=== PATIENT | female | born 1985 | race Caucasian/White ===

== ENCOUNTER 2017-11-06 17:14 | Inpatient (IN) | payer BC ==
[2017-11-06 18:16] LABS: Hematocrit 33 % (35-47); Hemoglobin 11.1 g/dl (12.0-16.0); Mean Corpuscular HGB Conc 34 g/dl (31-36); Mean Corpuscular Hemoglobin 29 pg (27-31); Mean Corpuscular Volume 86 fL (80-97); Mean Platelet Volume 7.9 um3 (7.4-10.4); Platelet Count 213 10^3/ul (150-450); Red Blood Count 3.88 10^6/ul (4.00-5.40); Red Cell Distribution Width 14 % (10.5-15); White Blood Count 9.2 10^3/ul (3.5-10.8)
[2017-11-06] MEDS ORDERED: OBEPIDURAL* 250 ML EPIDURAL ONE (18:20)
--- NOTE | 2017-11-06 18:29 | HP ---
General Information - Reason for Visit contractions every 5 minutes, -LOF, +spotting -VB. +FM - General Information Maternal Age: 32 Grav: 3 Para: 1 SAB: 1 IEA: 0 Estimated Due Date: 11/10/17 Determined By: Early Ultrasound Maternal Blood Type and Rh: A Negative - Results this Serology/RPR Result: Non-Reactive Rubella Result: Immune HBsAg Result: Negative HIV Result: Negative GBS Culture Result: Negative Past Medical History Delivery History: Hx Uncomplicated Vaginal Delivery Pertinent Past Medical History: Non-Contributory Pertinent Past Surgical History: See Records - tubes in ears 1990 Pertinent Family History: See Records - blood clots, DM, high chol, alzheimers, CVD Review of Systems Constitutional: Uncomfortable CV Complaint: No Respiratory: Shortness of Breath: No Gastrointestinal: No Nausea/Vomiting, Normal Bowel Movement Genitourinary: No Dysuria, No Bleeding, No Leaking Fluid, Spotting Musculoskeletal: Contractions Neurological: No Headache, No Visual Changes Movement: Normal Exam Allergies/Adverse Reactions: Allergies Sulfa (Sulfonamide Antibiotics) Allergy (Verified 11/06/17 17:40) Hives T:98.1, BP: 126/73, O2: 100 Lab Values - Entire Visit: Laboratory Tests 11/06/17 18:00 WBC 9.2 RBC 3.88 L Hgb 11.1 L Hct 33 L MCV 86 MCH 29 MCHC 34 RDW 14 Plt Count 213 MPV 7.9 - Measurements Height: 5 ft 6 in Weight: 187 lb Weight in lbs: [id number] Body Mass Index (BMI): 30.2 Pre- Weight: 153 lb Weight Gained This : 34 lbs and 0 ozs - Exam Breast: Breast Exam Deferred CVA: No CVA Tenderness Extremities: No Edema Heart: Normal Rhythm/Heart Sounds HEENT: No Significant Findings Lungs: Clear Bilaterally Rectal: Rectal Exam Deferred Reflexes: DTR 2+ Thyroid: No Thyromegaly - Abdominal Exam Abdomen Exam: Fundal Height Consistent with Dates - Ultrasound/Biophysical Profile Ultrasound Status: Not Done Targeted Exam Findings Estimated Weight: 8lbs Cervical Exam: 7cm Effacement: Thin Station: -1 Presenting Part: Vertex Membrane Status: Bulging Bleeding/Discharge: Bloody Show EFM Findings - External Monitor Findings Baseline Heart Rate: 145 External Monitor Findings: Accelerations Present, No Pattern of Variable or Late Decelerations, Variability Moderate, Baseline Stable Contractions: Regular, Moderate, 45-90 Seconds Contraction Frequency: 2-3 min Assessment/Plan - Assessment 32 y.o at 39w 3d EGA. Active labor - Plan Plan: Admit - Anticipate Vaginal Delivery - Date/Time of Admission Date of Admission: 11/06/17 Time of Admission: 05:14
[2017-11-06] MEDS ORDERED: Sodium Citrate/Citric Acid* 15 ML UDC PO PRN (19:20)
[2017-11-06] MEDS ORDERED: Phenylephrine IV* 40 MCG/ML 10 ML SYRINGE IV PUSH PRN ×2 (19:20)
[2017-11-06] MEDS ORDERED: EPHEDrine (Pressors)* 50 MG/ML VIAL IV PUSH PRN ×2 (19:20)
[2017-11-06] MEDS ORDERED: Famotidine TAB* 20 MG PO PRN (19:20)
[2017-11-06] MEDS ORDERED: OBEPIDURAL* 250 ML EPIDURAL SCH (20:00)
[2017-11-06] MEDS ORDERED: Oxytocin in LR* 20 UNITS/1,000 ML BAG IVPB ONE (21:05)
[2017-11-06] MEDS ORDERED: Glycerin ADULT SUPP PR PRN (21:19)
[2017-11-06] MEDS ORDERED: Dibucaine 1% 28.35 GM TUBE PR PRN (21:19)
[2017-11-06] MEDS ORDERED: Witch Hazel PAD* JAR TOPICAL PRN (21:19)
--- NOTE | 2017-11-06 21:28 | PROCNOTE ---
[facility], [place] OB: Delivery Note - Delivery A Date of : 11/06/17 Time of : 21:03 Sex: Male Gestational Age in Weeks and Days at Delivery: 39 Weeks and 3 Days Delivery Method: Spontaneous Vaginal Labor: Spontaneous Amniotic Fluid: Clear Estimated Blood Loss: 100 Anesthesia/Analgesia: CEI for Labor - Nursery Level of Nursery: Regular/Bedside - Perineum Perineal Injury Comment: left labial, hemostatic, pt declines repair Perineal Repair: None - Events Delivery Events of Note: Pitocin Only After Delivery - Additional Delivery Notes Additional Delivery Notes: nuchal cord easily reduced
[2017-11-06] MEDS ORDERED: Oxytocin in LR* 20 UNITS/1,000 ML BAG IVPB SCH (22:00)
[2017-11-06] MEDS: Ibuprofen TAB* 600 MG PO PRN (22:47)
[2017-11-07] MEDS: Ibuprofen TAB* 600 MG PO PRN ×3 (04:46→18:07)
[2017-11-07 06:42] LABS: ABS Basophils 0 10^3/ul (0-0.2); ABS Eosinophils 0 10^3/ul (0-0.6); ABS Lymphocytes 1.5 10^3/ul (1.0-4.8); ABS Monocytes 0.9 10^3/ul (0-0.8); ABS Neutrophils 11.3 10^3/ul (1.5-7.7); ABS Nucleated RBC 0 10^3/ul; Eosinophil % 0.2 % (0-6); Hematocrit 29 % (35-47); Hemoglobin 9.8 g/dl (12.0-16.0); Mean Corpuscular HGB Conc 34 g/dl (31-36); Mean Corpuscular Hemoglobin 29 pg (27-31); Mean Corpuscular Volume 86 fL (80-97); Mean Platelet Volume 7.8 um3 (7.4-10.4); Nucleated Red Blood Cells % 0; Platelet Count 184 10^3/ul (150-450); Red Cell Distribution Width 14 % (10.5-15); White Blood Count 13.7 10^3/ul (3.5-10.8)
[2017-11-07] MEDS: Ferrous Gluconate TAB* 324 MG TAB PO SCH ×2 (07:50→20:57)
[2017-11-07] MEDS: Docusate CAP* 100 MG PO SCH ×3 (07:50→20:57)
[2017-11-07] MEDS: Acetaminophen TAB* 325 MG PO PRN ×3 (07:51→20:56)
[2017-11-07] MEDS ORDERED: Simethicone TAB* 80 MG TAB.CHEW PO SCH (08:30)
[2017-11-07] MEDS ORDERED: Varicella Virus Vaccine Live* 0.5 ML VIAL SUBCUT ONE (09:00)
[2017-11-07] MEDS ORDERED: RHO D Immune Globulin (HUMAN)* 300 MCG = 1,500 I.U. INJ IM ONE (11:32)
[2017-11-07 20:51] VITALS: BP 116/70
== END 2017-11-07 18:40 | disposition home or self-care (01) | DRG 560 ==
LOC: MCHOBOUT 17:14 → MCHOB 17:38
PROVIDERS: ADMIT Midwife; ATTEND Midwife
PROC: 10E0XZZ Delivery of Products of Conception, External Approach (ICD-10-PCS; principal; 2017-11-06)
PROC: 4A1HXCZ Monitoring of Products of Conception, Cardiac Rate, External Approach (ICD-10-PCS; 2017-11-06)
DX: O69.81X0 Labor and delivery complicated by cord around neck, without compression, not applicable or unspecified (principal); O70.0 First degree perineal laceration during delivery; Z88.2 Allergy status to sulfonamides; Z82.0 Family history of epilepsy and other diseases of the nervous system; Z82.49 Family history of ischemic heart disease and other diseases of the circulatory system; Z83.3 Family history of diabetes mellitus; Z3A.39 39 weeks gestation of pregnancy; Z37.0 Single live birth; O90.81 Anemia of the puerperium
CPT/HCPCS: 36415; 85025; 85027; 85461; 86850; 86900; 86901; A9270-GY; J2790

== ENCOUNTER 2022-03-23 21:38 | Inpatient (IN) ==
[2022-03-23] MEDS ORDERED: Lactated Ringers 1000 ml BAG 1,000 ML IV ONE (21:59)
[2022-03-23] MEDS ORDERED: Buffered Lidocaine 1% SYRIN 1 ml INTRADERM ONE (21:59)
[2022-03-23] MEDS ORDERED: Lactated Ringers 1000 ml BAG 1,000 ML IV SCH (22:00)
[2022-03-24] MEDS ORDERED: Dibucaine 1% OINT 28.35 GM TUBE PR PRN (00:38)
[2022-03-24] MEDS ORDERED: Witch Hazel PAD JAR TOPICAL PRN (00:38)
[2022-03-24 03:25] LABS: Urine Benzodiazepine Screen None Detected (None Detect); Urine Cannabinoids Screen None Detected (None Detect); Urine Opiates Screen None Detected (None Detect)
[2022-03-24] MEDS ORDERED: RHO D Immune Globulin (HUMAN) 300 MCG = 1,500 I.U. INJ IM ONE (16:18)
[2022-03-25 07:36] VITALS: BP 114/74
[2022-03-25 07:42] LABS: ABS Eosinophils 0.1 10^3/ul (0-0.6); ABS Monocytes 0.5 10^3/ul (0-0.8); ABS Neutrophils 5.5 10^3/ul (1.5-7.7); Eosinophil % 1.4 %; Hematocrit 32 % (35-47); Hemoglobin 10.5 g/dL (12.0-16.0); Lymphocyte % 24.4 %; Mean Corpuscular HGB Conc 33 g/dL (31-36); Mean Corpuscular Hemoglobin 30 pg (27-31); Mean Corpuscular Volume 91 fL (80-97); Mean Platelet Volume 7.4 fL (7.4-10.4); Platelet Count 176 10^3/uL (150-450); Red Blood Count 3.51 10^6 /uL (3.70-4.87); Red Cell Distribution Width 14 % (10-15); White Blood Count 8.1 10^3/uL (3.5-10.8)
== END 2022-03-25 12:06 | disposition home or self-care (01) | DRG 560 ==
LOC: MCHOBOUT 21:38 → MCHOB 22:07
PROVIDERS: ADMIT Registered Nurse; ATTEND Registered Nurse